=== PATIENT | male | born 1975 | race Caucasian/White ===

== ENCOUNTER 2021-01-08 09:51 | Emergency (ER) | payer SELFPAY ==
[2021-01-08] MEDS ORDERED: METOCLOPRAMIDE 10 MG TAB PO ONE (09:57)
[2021-01-08] MEDS ORDERED: amLODIPine 5 MG TAB PO ONE (09:57)
[2021-01-08] MEDS ORDERED: diphenhydrAMINE 25 MG CAP PO ONE (09:57)
[2021-01-08] MEDS ORDERED: BUTALB/ACETAMINOPHEN/CAFFEINE TAB PO ONE (09:57)
--- NOTE | 2021-01-08 10:08 | Emergency Department Report ---
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 Nieto, safety and security manager Patient is a 45-year-old male presents emergency room complaints of a right temporal headache that began 5 days ago. He states he has been taking [id number] medication with some relief but is not sure what he is taking. He denies any fever, nausea, vomiting, diarrhea, chest pain, shortness of breath, vision changes, neck stiffness, thunderclap headache, numbness, weakness. He has no past medical history. Denies a history of hypertension. No allergies to medications. He is a non-smoker, nondrinker, no drug use. He denies any known sick contacts. He states that he just returned from [place]. Allergies/Adverse Reactions: Allergies No Known Allergies Allergy (Unverified 01/08/21 09:54) Home Medications: Ambulatory Orders Butalb/Acetaminophen/Caffeine [Fioricet 50-300-40 mg CAP] 1 cap PO Q8HR PRN #10 cap 01/08/21 amLODIPine 5 mg PO DAILY #30 tab 01/08/21 ED Review of Systems ROS: Stated complaint: HEADACHE Other details as noted in HPI Comment: All other systems reviewed and negative ED Past Medical Hx - Past Medical History Previous Medical History?: No - Surgical History Past Surgical History?: No - Social History Smoking Status: Never Smoker Substance Use Type: Alcohol - Medications Home Medications: Home Medications Medication Instructions Recorded Confirmed Last Taken Type Butalb/Acetaminophen/Caffeine 1 cap PO Q8HR PRN #10 cap 01/08/21 Unknown Rx [Fioricet 50-300-40 mg CAP] amLODIPine 5 mg PO DAILY #30 tab 01/08/21 Unknown Rx ED Physical Exam - General Limitations: No Limitations General appearance: alert, in no apparent distress - Head Head exam: Present: atraumatic, normocephalic - Eye Eye exam: Present: normal appearance - ENT ENT exam: Present: mucous membranes moist - Respiratory Respiratory exam: Present: normal lung sounds bilaterally. Absent: respiratory distress, wheezes, rales, rhonchi, stridor, chest wall tenderness, accessory muscle use, decreased breath sounds, prolonged expiratory - Cardiovascular Cardiovascular Exam: Present: regular rate, normal rhythm, normal heart sounds. Absent: systolic murmur, diastolic murmur, rubs, gallop - Neurological Exam Neurological exam: Present: alert, oriented X3, CN II-XII intact, normal gait. Absent: motor sensory deficit - Psychiatric Psychiatric exam: Present: normal affect, normal mood - Skin Skin exam: Present: warm, dry, intact ED Course Vital Signs 01/08/21 01/08/21 01/08/21 09:54 10:18 10:23 Temperature 98.4 F 98.8 F Pulse Rate 74 66 Respiratory 18 16 23 Rate Blood Pressure 184/104 Blood Pressure 158/94 [Right] O2 Sat by Pulse 99 98 Oximetry 01/08/21 01/08/21 01/08/21 10:28 11:11 11:58 Temperature Pulse Rate 75 63 Respiratory 14 16 Rate Blood Pressure 150/93 Blood Pressure 153/96 [Right] O2 Sat by Pulse 97 Oximetry ED Medical Decision Making - Lab Data Result diagrams: 01/08/21 10:28 01/08/21 10:28 Lab Results 01/08/21 01/08/21 Range/Units 10:28 10:28 WBC 6.7 (4.5-11.0) K/mm3 RBC 4.95 (3.65-5.03) M/mm3 Hgb 16.4 H (11.8-15.2) gm/dl Hct 47.2 H (35.5-45.6) % MCV 95 H (84-94) fl MCH 33 H (28-32) pg MCHC 35 H (32-34) % RDW 12.4 L (13.2-15.2) % Plt Count 172 (140-440) K/mm3 Lymph % (Auto) 23.7 (13.4-35.0) % [place] % (Auto) 6.8 (0.0-7.3) % Eos % (Auto) 1.1 (0.0-4.3) % Baso % (Auto) 0.3 (0.0-1.8) % Lymph # (Auto) 1.6 (1.2-5.4) K/mm3 [place] # (Auto) 0.5 (0.0-0.8) K/mm3 Eos # (Auto) 0.1 (0.0-0.4) K/mm3 Baso # (Auto) 0.0 (0.0-0.1) K/mm3 Seg Neutrophils % 68.1 (40.0-70.0) % Seg Neutrophils # 4.6 (1.8-7.7) K/mm3 Sodium 137 (137-145) mmol/L Potassium 4.0 (3.6-5.0) mmol/L Chloride 103.3 (98-107) mmol/L Carbon Dioxide 26 (22-30) mmol/L Anion Gap 12 mmol/L BUN 11 (9-20) mg/dL Creatinine 0.6 L (0.8-1.3) mg/dL Estimated GFR > 60 ml/min BUN/Creatinine Ratio 18 % Glucose 99 (75-100) mg/dL Calcium 8.8 (8.4-10.2) mg/dL Total Bilirubin 0.70 (0.1-1.2) mg/dL AST 21 (5-40) units/L ALT 25 (7-56) units/L Alkaline Phosphatase 46 (35-129) units/L Total Protein 7.0 (6.3-8.2) g/dL Albumin 4.3 (3.9-5) g/dL Albumin/Globulin Ratio 1.6 % - Medical Decision Making Croatian interpretation by Ms. Nieto, safety and security manager Patient is a 45-year-old male presents emergency room complaints of a right temporal headache that began 5 days ago. He states he has been taking [id number] medication with some relief but is not sure what he is taking. He denies any fever, nausea, vomiting, diarrhea, chest pain, shortness of breath, vision changes, neck stiffness, thunderclap headache, numbness, weakness. He has no past medical history. Denies a history of hypertension. No allergies to medications. He is a non-smoker, nondrinker, no drug use. He denies any known sick contacts. He states that he just returned from [place]. Vitals with elevated blood pressure which improved upon repeat. No focal neuro deficits on exam, no trauma, no meningeal signs. Labs are stable. Patient given Fioricet, Reglan, Benadryl, Toradol, amlodipine. After medications, symptoms improved. Patient given prescription for Fioricet and amlodipine. G ust lifestyle modifications with patient. discussed the importance of primary care follow-up. advised pt Please take medication as prescribed. Increase your water intake. Decrease your sodium intake. Incorporate 30 to 60 minutes of daily exercise. Follow-up with your primary care doctor and discuss the elevation in your blood pressure during today's visit. Return to emergency room for any new or worsening symptoms. Critical care attestation.: If time is entered above; I have spent that time in minutes in the direct care of this critically ill patient, excluding procedure time. ED Disposition Clinical Impression: Elevated blood pressure reading Headache Qualifiers: Headache type: unspecified Headache chronicity pattern: acute headache Intractability: not intractable Qualified Code(s): R51.9 - Headache, unspecified Disposition: DC-01 TO HOME OR SELFCARE Is pt being admited?: No Does the pt Need Aspirin: No Condition: Stable Instructions: Hypertension, Adult, [id number], General Headache Without Cause, [id number], Managing Your Hypertension Additional Instructions: Please take medication as prescribed. Increase your water intake. Decrease your sodium intake. Incorporate 30 to 60 minutes of daily exercise. Follow-up with your primary care doctor and discuss the elevation in your blood pressure during today's visit. Return to emergency room for any new or worsening symptoms. Brooker los medicamentos segn lo prescrito. Incrementa tu ingesta de agua. Disminuya fong ingesta de sodio. Incorpora de 30 a 60 minutos de ejercicio diario. Richard un seguimiento con fong mdico de atencin primaria y analice la elevacin de fong presin arterial radha la visita de stefan. Regrese a la vijay de emergencias por cualquier sntoma nuevo o que empeore. Prescriptions: amLODIPine 5 mg PO DAILY #30 tab Butalb/Acetaminophen/Caffeine [Fioricet 50-300-40 mg CAP] 1 cap PO Q8HR PRN #10 cap PRN Reason: headache Referrals: CONSTANTINE HARDIN MD [Primary Care Provider] - 2-3 Days CLAUDIA CAIN MD [Staff Physician] - 2-3 Days [facility] [Provider Group] - 2-3 Days Time of Disposition: 11:34 Print Language: MONGOLIAN
[2021-01-08 10:52] LABS: Basophils % (Auto) 0.3 % (0.0-1.8); Eosinophils # (Auto) 0.1 K/mm3 (0.0-0.4); Eosinophils % (Auto) 1.1 % (0.0-4.3); Hematocrit 47.2 % (35.5-45.6); Hemoglobin 16.4 gm/dl (11.8-15.2); Lymphocytes # (Auto) 1.6 K/mm3 (1.2-5.4); Lymphocytes % (Auto) 23.7 % (13.4-35.0); Mean Corpuscular HGB Conc 35 % (32-34); Mean Corpuscular Volume 95 fl (84-94); Monocytes # (Auto) 0.5 K/mm3 (0.0-0.8); Monocytes % (Auto) 6.8 % (0.0-7.3); Platelet Count 172 K/mm3 (140-440); Red Blood Count 4.95 M/mm3 (3.65-5.03); Red Cell Distribution Width 12.4 % (13.2-15.2)
[2021-01-08 11:12] VITALS: BP 153/96
[2021-01-08 11:12] LABS: Alanine Aminotransferase 25 units/L (7-56); Albumin 4.3 g/dL (3.9-5); Blood Urea Nitrogen 11 mg/dL (9-20); Calcium 8.8 mg/dL (8.4-10.2); Hemolysis Index 6
[2021-01-08 11:32] LABS: BUN/Creatinine Ratio 18
[2021-01-08] MEDS ORDERED: KETOROLAC 60 MG/2 ML INJ IM ONE (11:40)
== END 2021-01-08 12:08 | disposition home or self-care (01) ==
LOC: ED 09:51
DX: R03.0 Elevated blood-pressure reading, without diagnosis of hypertension (principal); R51.9 Headache, unspecified; Z79.899 Other long term (current) drug therapy
CPT/HCPCS: 36415; 80053; 85025; 96372; 99283; J1885